=== PATIENT | female | born 1960 ===

== ENCOUNTER 2018-02-25 09:38 | Day surgery (SDC) | payer OTHER ==
[2018-02-18 10:02] VITALS: BMI 32.1
[2018-02-25] MEDS ORDERED: Propofol 10 mg/ml Inj (20 ML) ONE (13:07)
[2018-02-25] MEDS ORDERED: Succinylcholine 200 mg/10 ml Inj IV ONE (13:09)
[2018-02-25] MEDS ORDERED: Midazolam 2 MG/2 ML VIAL ONE (13:16)
[2018-02-25] MEDS ORDERED: Lactated Ringer's 1,000 ML IV ONE (13:20)
[2018-02-25] MEDS ORDERED: Lidocaine 4% (Laryng-O-Jet) Kit MM ONE (13:21)
[2018-02-25] MEDS ORDERED: HYDROmorphone 0.5 mg/0.5 ml ISec IVP PRN (13:47)
[2018-02-25] MEDS ORDERED: Lactated Ringer's 1,000 ML IV SCH (14:00)
[2018-02-25 14:54] VITALS: O2SAT 99
[2018-02-25 15:41] VITALS: BP 132/78; PULSE 76; RESP 19; TEMP 97.6
--- NOTE | 2018-02-26 00:24 | OP ---
PROCEDURE DATE: 02/25/2018 PREOPERATIVE DIAGNOSES: Postmenopausal spotting and thickened endometrium on sonogram and fibroid uterus. POSTOPERATIVE DIAGNOSES: Postmenopausal spotting and thickened endometrium on sonogram and fibroid uterus. OPERATION PERFORMED: Hysteroscopy, dilatation and curettage. SURGEON: Alina Rodriguez MD ANESTHESIA: General. ANESTHESIA ADMINISTERED BY: Og Lema MD ESTIMATED BLOOD LOSS: Minimal. The patient was straight catheterized prior to starting the procedure. OPERATIVE FINDINGS: Normal external female genitalia. Urethra normal. Cervix was smooth. Uterus had an irregular contour, approximately 8 weeks in size. Adnexa, no masses appreciated. Vagina pink, no discharge. HYSTEROSCOPIC FINDINGS: Both ostia were visualized. A small fibroid was noted at 1 o'clock. Atrophic endometrium noted. Both ostia were visualized. No polyps noted. Photomicrographs were taken for documentation. DESCRIPTION OF PROCEDURE: After informed consent was obtained, the patient was taken to the operating room where she was given general anesthesia. She was then prepped and draped in a normal sterile fashion. A weighted speculum was then inserted into the vagina. Cervix was visualized and mopped with Betadine. Cervix was then grasped with a single-tooth tenaculum, gently dilated. The hysteroscope was inserted into the uterine cavity with findings noted above. A curettage was then performed. Endometrial curettings were sent to Pathology. All instruments were then removed from the vagina. The patient tolerated the procedure well and was taken to the recovery room in awake and stable condition. Alina Rodriguez MD
== END 2018-02-25 15:30 | disposition home or self-care (01) ==
LOC: H.OPSURG 09:38
PROVIDERS: ATTEND Obstetrics & Gynecology Gynecology
DX: D25.9 Leiomyoma of uterus, unspecified (principal); R93.89 Abnormal findings on diagnostic imaging of other specified body structures; M19.90 Unspecified osteoarthritis, unspecified site; I10 Essential (primary) hypertension; K21.9 Gastro-esophageal reflux disease without esophagitis; N95.8 Other specified menopausal and perimenopausal disorders
CPT/HCPCS: 58558; 88305; J0330; J1885; J2001; J2250; J2704; J3010; J7120